=== PATIENT | female | born 1960 | race Caucasian/White ===

== ENCOUNTER 2016-11-27 15:41 | Emergency (ER) | payer OTHER ==
--- NOTE | 2016-11-27 16:11 | EDPHY ---
H & P Stated Complaint: tripped down 1 step last night fell to grd, no loc-"double vision" since am Source: Patient, Family - Personal History Current Tetanus/Diphtheria Vaccine: Unsure Current Tetanus Diphtheria and Acellular Pertussis (TDAP): Unsure - Medical/Surgical History Hx Asthma: No Hx Chronic Respiratory Disease: No Hx Diabetes: No Hx Cardiac Disease: No Hx Renal Disease: No Hx Cirrhosis: No Hx Alcoholism: No Hx HIV/AIDS: No Hx Splenectomy or Spleen Trauma: No Other PMH: denies - Social History Smoking Status: Never smoked Time Seen by Provider: 11/27/16 15:50 HPI/ROS: CHIEF COMPLAINT: Headache, blurred vision HISTORY OF PRESENT ILLNESS: This is a 56-year-old female presenting to the emergency department complaining of headache and blurred vision. Patient stated they were camping yesterday evening when she was caring some items tripped and fell landing on the ground hitting her head, reports no LOC but she did have altered mental status after the injury lasting 15-20 minutes. Patient stated she did not have a headache last night the headache started this morning but has had continued blurred vision. No nausea or vomiting ambulatory with a steady gait REVIEW OF SYSTEMS: Constitutional: No fever, no chills. Eyes: No discharge. Double vision onset last night after fall, today double vision is intermittent ENT: No sore throat. Cardiovascular: No chest pain, no palpitations. Respiratory: No cough, no shortness of breath. Gastrointestinal: No abdominal pain, no vomiting. Genitourinary: No hematuria. Musculoskeletal: No back pain. Skin: No rashes. Neurological: headache. Altered mental status last night per (Rebecca Ceballos) - Physical Exam Exam: General Appearance: Alert, no distress. Eyes: PERRLA, EOMI. no pallor or injection. ENT, Mouth: Mucous membranes moist. Respiratory: There are no retractions, lungs are clear to auscultation. Cardiovascular: Regular rate and rhythm. Gastrointestinal: Abdomen is soft and nontender, no masses, bowel sounds normal. Neurological: No focal deficits ambulatory steady gait Skin: Warm and dry, no rashes. No abrasions no lacerations Musculoskeletal: Vertebral cervical spine nontender on palpation, full range of motion Extremities: symmetrical, full range of motion. Psychiatric: Patient is oriented X 3, there is no agitation. (Rebecca Ceballos) Constitutional: Initial Vital Signs Temperature (C) 36.4 C 11/27/16 15:46 Heart Rate 75 11/27/16 15:46 Respiratory Rate 16 11/27/16 15:46 Blood Pressure 110/66 11/27/16 15:46 O2 Sat (%) 99 11/27/16 15:46 O2 Delivery Mode Room Air Allergies/Adverse Reactions: No Known Allergies Allergy (Unverified 11/27/16 15:44) Home Medications: Medication Instructions Recorded NK [No Known Home Meds] 11/27/16 Medical Decision Making - Diagnostics Imaging Results: Imaging Impressions Head CT 11/27/16 16:12 Impression: 1. Small acute subarachnoid hemorrhage along the interhemispheric falx. 2. No mass effect or shift. 3. No acute fracture. Findings discussed with Emergency Department physician, Rebecca Ceballos N.P., on November 27, 2016 at 1635 hours. ED Course/Re-evaluation: 1730-this patient was seen and examined by me. Neurologic exam is intact. I consulted Dr. Soni, he will see pt in ED. (Adela Mancia) Discussed ED plan of care: Visual acuity, CT head 1640: Discussed with Dr. Sotomayor positive findings on CT head 1710: Spoke with Dr. Soni with the neurosurgeon, patient will be evaluate here in the ED 1715: Discussed results and consult with patient. 1815: Dr. Soni the at patient bedside evaluation. Patient will follow up in their office in 1 week. I also discussed with patient and if any changes in symptoms, such as: Worsening vision, worsening headache, any changes to her mentation, loss of balance return to the emergency department immediately. Patient agreed with plan 1820: AAOx3, not in any distress, no focal deficits neurologically intact, ambulatory without gait disturbance. Discharge home---> stable, discussed all discharge instructions (Rebecca Ceballos) Differential Diagnosis: Other differential diagnosis considered but not limited to AMS, skull fracture and CVA (Rebecca Ceballos) Departure - Departure Disposition: Home, Routine, Self-Care Clinical Impression: Subarachnoid hemorrhage following injury with concussion Concussion Qualifiers: Encounter type: initial encounter Loss of consciousness presence/duration: without LOC Qualified Code(s): S06.0X0A - Concussion without loss of consciousness, initial encounter Condition: Good Instructions: Concussion (ED) Additional Instructions: Discussed discharge instructions the patient 1. Follow up with Dr. Soni and 1 week 2. If any symptoms worsen, such as: Increased headache, changes in mental status, worsening vision, and loss of balance return to the emergency department immediately Referrals: Kelly Olsen MD [Primary Care Provider] - As per Instructions Jose D Soni MD [Medical Doctor] - As per Instructions
[2016-11-27 18:07] VITALS: PULSE 88; RESP 18; O2SAT 93
[2016-11-27 18:26] VITALS: BP 128/88; TEMP 96.8
--- NOTE | 2016-11-27 18:52 | GCON ---
[f rep st] CONSULTATION SURGICAL CONSULTATION DATE OF CONSULTATION: 11/27/2016 REFERRING PHYSICIAN: Jose D Soni MD REASON FOR CONSULT: Small intracranial hemorrhage and postconcussive symptoms. HISTORY OF PRESENT ILLNESS: The patient is a pleasant 56-year-old female, who was camping with her yesterday. She had a fall last evening, striking her head with some associated loss of consc iousness. On the drive home today, she began having headaches and noting double vision. Once they a rrived in [place], they came to the emergency room where noncontrasted head CT was performed that de monstrates some very thin interhemispheric subdural hematoma. Other than her subjective complaints of headache and double vision, she has no neurologic symptoms or concerning findings on her exam. I was consulted for evaluation. PAST MEDICAL AND SURGICAL HISTORY: Otherwise healthy. ALLERGIES: No known drug allergies. HOME MEDICINES: No home medications. SOCIAL HISTORY: Denies alcohol, tobacco, or drug abuse. with children. Lives in [facility]. FAMILY HISTORY: Noncontributory. REVIEW OF SYSTEMS: 10 points reviewed and negative other than HPI. PHYSICAL EXAMINATION: VITAL SIGNS: Temperature 36.4, heart rate 75, blood pressure 110/66, respira tory rate 16, O2 sats 99%. NEUROLOGIC: Awake, alert, oriented x3. Appears stated age. No acute d istress. Normal fluent speech. 5/5 strength in upper and lower extremities. Normal sensory exam. Normal reflex exam. Extraocular muscles are normal in all martinez of gaze. Steady gait. LABORATORY DATA: There are no labs for review today. IMAGING: I reviewed the patient's noncontrasted head CT and agree with a small focus of interhemisp heric subdural hematoma in the frontal region. IMPRESSION AND PLAN: The patient is a 56-year-old female, who had blunt head trauma last night with associated loss of consciousness and altered mental status for a short period of time who began hav ing headaches and double vision this morning. She has normal neurologic exam, has GCS of 15. She h ad a head CT that shows a trivial amount of interhemispheric subdural that is nonoperative and almos t certainly will not become operative at any point in time. Given the fact that her trauma was nearl y 24 hours ago, I would not recommend repeating her scans. She does not need to be on anticonvulsant and, given her very reassuring neurologic exam, I am clearing her for discharge from the emergency room to her home today. My call office will call her in the morning for followup appointment in 1-2 weeks. We did discuss that she likely has symptoms of a concussion and she has a postconcussive syn drome and has symptoms of a concussion such as headache and double vision which she endorses can jerome etimes wax and wane over a period of days to weeks following concussion. I would imagine hers shoul d go away relatively quickly as it seems like her concussion was mild in the spectrum. She is apprec iative of the education, as well as her . I will follow them up in my outpatient clinic [facility] they have continued problems in 1-2 weeks. /[id number]/MODL
== END 2016-11-27 18:26 | disposition home or self-care (01) ==
DX: S06.6X0A Traumatic subarachnoid hemorrhage without loss of consciousness, initial encounter (principal); W01.198A Fall on same level from slipping, tripping and stumbling with subsequent striking against other object, initial encounter; Y92.833 Campsite as the place of occurrence of the external cause; Y99.8 Other external cause status; Y93.89 Activity, other specified